=== PATIENT | male | born 1985 | race Caucasian/White ===

== ENCOUNTER 2018-07-17 18:15 | Emergency (ER) | payer BC, SELFPAY ==
[2018-07-17 18:19] VITALS: BP 111/65; PULSE 68; RESP 16; TEMP 36.7; O2SAT 99
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
[2018-07-17] MEDS: KETOROLAC 60 MG/2 ML VIAL 30 MG IM (18:56)
[2018-07-17 19:50] VITALS: BP 116/61; PULSE 63; RESP 16; O2SAT 100
[2018-07-17 19:52] VITALS: BP 116/61; PULSE 60; RESP 18; O2SAT 100
== END 2018-07-17 19:53 | disposition home or self-care (01) ==
PROVIDERS: Emergency Provider Nurse Practitioner Family
DX: S01.512A Laceration without foreign body of oral cavity, initial encounter (principal); S00.531A Contusion of lip, initial encounter; W22.8XXA Striking against or struck by other objects, initial encounter; Y99.0 Civilian activity done for income or pay
CPT/HCPCS: 96372; 99282; 99283; J1885

== ENCOUNTER → 2020-03-31 17:17 | Outpatient (CLI) | payer BC, SELFPAY ==
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
== END ==
PROVIDERS: PCP Student in an Organized Health Care Education/Training Program; Referring Provider Student in an Organized Health Care Education/Training Program; Visit Provider Student in an Organized Health Care Education/Training Program
DX: M12.562 Traumatic arthropathy, left knee (principal); M22.42 Chondromalacia patellae, left knee
CPT/HCPCS: 73721

== ENCOUNTER → 2022-06-07 08:48 | Outpatient (CLI) | payer BC, SELFPAY ==
[2022-06-07 10:08] LABS: Add Manual Diff / Slide Review NO; Basophils Absolute Auto 100 /uL (0-100); Basophils Percent Auto 0.9 % (0-2); Eosinophils Absolute Auto 100 /uL (0-450); Eosinophils Percent Auto 2.1 % (2-4); Hematocrit 44.1 % (41-53); Lymphocytes Absolute Auto 1500 /uL (1100-4500); Lymphocytes Percent Auto 24.6 % (25-40); Mean Corpuscular Volume 91.2 fL (80-100); Monocytes Absolute Auto 500 /uL (0-900); Monocytes Percent Auto 8.9 % (3-14); Neutrophils Absolute Auto 3800 /uL (1500-7000); Neutrophils Percent Auto 63.5 % (50-75); Platelet Count 274 X10^3/uL (150-400); Red Blood Cell Count 4.83 X10^6/uL (4.5-5.9); Red Cell Distribution Width 12.7 % (11.6-14.8)
[2022-06-07 10:31] LABS: Cholesterol 192 mg/dL (140-199); HDL Cholesterol 60 mg/dL (40-60); LDL Cholesterol Calculated 93 mg/dL (<100); Triglycerides 197 mg/dL (35-150)
[2022-06-07 10:40] LABS: Vitamin D 25 Hydroxy (D3) 35.5 ng/mL (30.0-100.0)
[2022-06-07 11:16] LABS: Vitamin B12 539 pg/mL (239-931)
[2022-06-08 18:25] LABS: Hep C Virus Ab w/Reflex Quant NEGATIVE s/c (NEGATIVE)
== END ==
PROVIDERS: PCP Student in an Organized Health Care Education/Training Program; Referring Provider Student in an Organized Health Care Education/Training Program; Visit Provider Student in an Organized Health Care Education/Training Program
DX: R41.3 Other amnesia (principal); R53.83 Other fatigue; Z13.220 Encounter for screening for lipoid disorders; Z11.59 Encounter for screening for other viral diseases; E55.9 Vitamin D deficiency, unspecified
CPT/HCPCS: 36415; 80061; 82306; 82607; 84443; 85025; 86803

== ENCOUNTER → 2025-02-26 13:51 | Outpatient (CLI) | payer BC, SELFPAY ==
--- NOTE | 2025-02-26 13:52 | DI.RAD.S_ITS ---
PROCEDURE: XR LUMBAR SPINE 2-3V INDICATIONS: screening TECHNIQUE: 3 views of the lumbar spine were acquired. COMPARISON: None. FINDINGS: Bones: Mild dextrocurvature of the lumbar spine. Vertebral body height of the lumbar spine are well maintained. Mild degenerative disc disease at L5-S1. No significant lumbar facet arthropathy. Soft tissues: Overlying bowel gas pattern is normal. No suspicious soft tissue calcifications. IMPRESSION: No acute bony abnormality. Dictated by: Leonie Godinez M.D. on 02/26/2025 at 17:19 Approved by: Leonie Godinez M.D. on 02/26/2025 at 17:20
== END ==
PROVIDERS: PCP Family Medicine; Referring Provider Family Medicine; Visit Provider Family Medicine
DX: M51.379 Other intervertebral disc degeneration, lumbosacral region without mention of lumbar back pain or lower extremity pain (principal); M54.9 Dorsalgia, unspecified
CPT/HCPCS: 72100